=== PATIENT | male | born 1930 | race Caucasian/White ===

== ENCOUNTER 2016-10-13 08:07 | Outpatient (CLI) | payer MEDICARE, OTHER ==
[2016-10-13 09:12] LABS: #Basophils 0.1 thou/uL (0.0-0.2); #Eosinphils 0.7 thou/uL (0.0-0.7); #Lymphocytes 1.1 thou/uL (1.20-3.40); #Monocytes 0.6 thou/uL (0.11-0.59); #Neutrophils 6.5 thou/uL (1.40-6.50); %Basophils 1.2 % (0.0-1.0); %Lymphocytes 12.3 % (21.0-51.0); %Monocytes 6.7 % (0.0-10.0); %Neutrophils 71.8 % (42.0-75.0); Hemoglobin 9.5 g/dL (14.0-18.0); Mean Corpuscular HGB CONC 30.9 g/dL (32.0-36.0); Mean Corpuscular Hemoglobin 26.6 pg (27.0-31.0); Mean Platelet Volume 6.9 fL (7.4-10.4); Platelet Count 539 thou/uL (130-400); RBC Distribution Width 16.1 % (11.5-14.5); Red Blood Cell (RBC) Count 3.58 mill/uL (4.70-6.10); White Blood Cell (WBC) Count 9.1 thou/uL (4.8-10.8)
[2016-10-13 09:46] LABS: Albumin 3.7 g/dL (3.4-4.8); Anion Gap 19 mmol/L (10-20); BUN (Urea Nitrogen) 41 mg/dL (8.4-25.7); Calc. Creatinine Clearance 0 mL/min (70-130); Carbon Dioxide 22 mmol/L (23-31); Chloride 103 mmol/L (98-107); Estimated GFR-MDRD 27; Glucose 98 mg/dL (83-110); Phosphorus 4.2 mg/dL (2.3-4.7); Potassium 4.5 mmol/L (3.5-5.1); Sodium 139 mmol/L (136-145)
[2016-10-13 10:22] LABS: Follow-up Chemistry Comp? YES; Follow-up Hematology Comp? YES; Follow-up Result - Chemistry REPORT FAXED; Follow-up Result - Hematology REPORT FAXED
== END 2016-10-13 08:08 | disposition home or self-care (01) ==
LOC: NAV LAB 08:07
PROVIDERS: ATTEND Internal Medicine Nephrology
DX: E78.5 Hyperlipidemia, unspecified (principal); C18.9 Malignant neoplasm of colon, unspecified; C61 Malignant neoplasm of prostate; I12.9 Hypertensive chronic kidney disease with stage 1 through stage 4 chronic kidney disease, or unspecified chronic kidney disease; N18.4 Chronic kidney disease, stage 4 (severe); I25.10 Atherosclerotic heart disease of native coronary artery without angina pectoris; I73.9 Peripheral vascular disease, unspecified; J44.9 Chronic obstructive pulmonary disease, unspecified
CPT/HCPCS: 36415; 80069; 85025

== ENCOUNTER 2016-11-27 13:44 | Outpatient (CLI) | payer MEDICARE, OTHER ==
[2016-11-27 14:01] LABS: #Basophils 0.1 thou/uL (0.0-0.2); #Eosinphils 0.5 thou/uL (0.0-0.7); #Lymphocytes 1.8 thou/uL (1.20-3.40); #Monocytes 0.5 thou/uL (0.11-0.59); #Neutrophils 7.1 thou/uL (1.40-6.50); %Basophils 1.4 % (0.0-1.0); %Eosinophils 5.4 % (0.0-10.0); %Monocytes 4.8 % (0.0-10.0); %Neutrophils 70.3 % (42.0-75.0); Mean Corpuscular HGB CONC 30.6 g/dL (32.0-36.0); Mean Corpuscular Hemoglobin 27.2 pg (27.0-31.0); Mean Corpuscular Volume 88.9 fl (80.0-94.0); Mean Platelet Volume 6.5 fL (7.4-10.4); Platelet Count 620 thou/uL (130-400); RBC Distribution Width 18.3 % (11.5-14.5); Red Blood Cell (RBC) Count 4.05 mill/uL (4.70-6.10); White Blood Cell (WBC) Count 10.1 thou/uL (4.8-10.8)
[2016-11-27 14:04] LABS: Anion Gap 19 mmol/L (10-20); BUN (Urea Nitrogen) 47 mg/dL (8.4-25.7); Calc. Creatinine Clearance 0 mL/min (70-130); Calcium 9.2 mg/dL (7.8-10.44); Carbon Dioxide 23 mmol/L (23-31); Chloride 103 mmol/L (98-107); Estimated GFR-MDRD 26; Glucose 83 mg/dL (83-110); Potassium 4.6 mmol/L (3.5-5.1); Sodium 140 mmol/L (136-145)
== END 2016-11-27 13:45 | disposition home or self-care (01) ==
LOC: NAVSJIPCSP 13:44
PROVIDERS: ATTEND Internal Medicine
DX: I12.9 Hypertensive chronic kidney disease with stage 1 through stage 4 chronic kidney disease, or unspecified chronic kidney disease (principal); N18.9 Chronic kidney disease, unspecified; K92.1 Melena
CPT/HCPCS: 36415; 80048; 85025

== ENCOUNTER 2016-11-29 08:17 | Emergency (ER) | payer MEDICARE, OTHER ==
[2016-11-29] MEDS ORDERED: Lidocaine 1% w/Epinephrine 1:100K 20 ML VIAL ONE (08:42)
[2016-11-29] MEDS ORDERED: Bacitracin Zinc 1 Packet ONE (08:45)
[2016-11-29] MEDS ORDERED: Adacel (T-DAP) 0.5 ML VIAL ONE (09:00)
== END 2016-11-29 09:06 | disposition home or self-care (01) ==
LOC: NAV ERS 08:17
DX: S41.112A Laceration without foreign body of left upper arm, initial encounter (principal); I11.0 Hypertensive heart disease with heart failure; I50.9 Heart failure, unspecified; Z79.82 Long term (current) use of aspirin; Z95.0 Presence of cardiac pacemaker; Z79.899 Other long term (current) drug therapy; W26.8XXA Contact with other sharp object(s), not elsewhere classified, initial encounter
CPT/HCPCS: 12001; 90471; 90715; J2001

== ENCOUNTER 2016-12-21 10:55 | Emergency (ER) | payer MEDICARE, OTHER ==
--- NOTE | 2016-12-21 13:15 | RAD ---
LEFT TIBIA FIBULA: HISTORY: Injury to left lower extremity with pain to purdy region. FINDINGS: No evidence of fracture. No evidence of acute osseous abnormality. There is a tiny metallic fragment which overlies the proximal medial tibial condyle just below the t ibial plateau suggesting small foreign body. IMPRESSION: No evidence of acute osseous abnormality. Question tiny metallic foreign body. POS: GIULIANO
== END 2016-12-21 13:13 | disposition home or self-care (01) ==
LOC: NAV ERS 10:55
DX: S80.12XA Contusion of left lower leg, initial encounter (principal); I11.0 Hypertensive heart disease with heart failure; I50.9 Heart failure, unspecified; W22.8XXA Striking against or struck by other objects, initial encounter

== ENCOUNTER 2016-12-25 10:37 | Outpatient (CLI) | payer MEDICARE, OTHER ==
--- NOTE | 2016-12-25 12:59 | RAD ---
2 VIEWS OF CHEST: Date: 12/25/16 COMPARISON: 01/17/16. HISTORY: CHF exacerbation. FINDINGS: Two views of the chest show an enlarged but stable cardiomediastinal silhouette. The pacemaker is un changed in position. The increased interstitial lung markings are present. There is no evidence of c onsolidation, mass, or pleural effusion. IMPRESSION: No evidence of acute cardiopulmonary disease. POS: OFF
== END 2016-12-25 10:38 | disposition home or self-care (01) ==
LOC: NAV RAD 10:37
PROVIDERS: ATTEND Internal Medicine
DX: I50.32 Chronic diastolic (congestive) heart failure (principal); N18.4 Chronic kidney disease, stage 4 (severe)
CPT/HCPCS: 36415; 71020; 80048; 82728; 83880; 85025

== ENCOUNTER 2017-01-26 07:41 | Outpatient (CLI) | payer MEDICARE, BC ==
[2017-01-26 08:28] LABS: #Basophils 0.1 thou/uL (0.0-0.2); #Eosinphils 0.8 thou/uL (0.0-0.7); #Lymphocytes 1.4 thou/uL (1.20-3.40); #Monocytes 0.6 thou/uL (0.11-0.59); #Neutrophils 6.9 thou/uL (1.40-6.50); %Basophils 1.1 % (0.0-1.0); %Eosinophils 8.5 % (0.0-10.0); %Lymphocytes 13.8 % (21.0-51.0); %Monocytes 6.4 % (0.0-10.0); %Neutrophils 70.1 % (42.0-75.0); Mean Corpuscular Hemoglobin 27.1 pg (27.0-31.0); Mean Corpuscular Volume 87.5 fl (80.0-94.0); Mean Platelet Volume 7.2 fL (7.4-10.4); Platelet Count 543 thou/uL (130-400); Red Blood Cell (RBC) Count 3.69 mill/uL (4.70-6.10); White Blood Cell (WBC) Count 9.8 thou/uL (4.8-10.8)
[2017-01-26 08:48] LABS: Albumin 3.8 g/dL (3.4-4.8); Anion Gap 15 mmol/L (10-20); BUN (Urea Nitrogen) 49 mg/dL (8.4-25.7); Calc. Creatinine Clearance 0 mL/min (70-130); Calcium 9.3 mg/dL (7.8-10.44); Carbon Dioxide 26 mmol/L (23-31); Cardiac Risk 2.1 (Less than 4.5); Chloride 103 mmol/L (98-107); Cholesterol 100 mg/dl (< 200 Desired); Estimated GFR-MDRD 27; Glucose 83 mg/dL (83-110); HDL Cholesterol 48 mg/dL (>60 Neg Risk); LDL Cholesterol, Calculated 46 mg/dL; Phosphorus 4.5 mg/dL (2.3-4.7); Potassium 4.5 mmol/L (3.5-5.1); Sodium 139 mmol/L (136-145); Triglycerides 32 mg/dL (Less than 150)
== END 2017-01-26 07:42 | disposition home or self-care (01) ==
LOC: NAV LAB 07:41
PROVIDERS: ATTEND Internal Medicine Nephrology
DX: C61 Malignant neoplasm of prostate (principal); C18.9 Malignant neoplasm of colon, unspecified; I12.9 Hypertensive chronic kidney disease with stage 1 through stage 4 chronic kidney disease, or unspecified chronic kidney disease; N18.4 Chronic kidney disease, stage 4 (severe); E78.5 Hyperlipidemia, unspecified; J44.9 Chronic obstructive pulmonary disease, unspecified; I25.10 Atherosclerotic heart disease of native coronary artery without angina pectoris; I73.9 Peripheral vascular disease, unspecified
CPT/HCPCS: 36415; 80061; 80069; 84443; 85025

== ENCOUNTER 2017-03-17 00:27 | Emergency (ER) | payer MEDICARE, BC ==
[2017-03-17] MEDS ORDERED: Triple Antibiotic Oint 1 GM Packet ONE (00:47)
== END 2017-03-17 00:55 | disposition home or self-care (01) ==
LOC: NAV ERS 00:27
DX: S51.011A Laceration without foreign body of right elbow, initial encounter (principal); S61.511A Laceration without foreign body of right wrist, initial encounter; S61.512A Laceration without foreign body of left wrist, initial encounter; I11.0 Hypertensive heart disease with heart failure; I50.9 Heart failure, unspecified; Z79.82 Long term (current) use of aspirin; Z79.899 Other long term (current) drug therapy; W18.30XA Fall on same level, unspecified, initial encounter; Y92.009 Unspecified place in unspecified non-institutional (private) residence as the place of occurrence of the external cause
CPT/HCPCS: 99283

== ENCOUNTER 2020-10-08 09:50 | Outpatient (CLI) | payer MEDICARE, BC ==
[2020-10-09 13:56] LABS: SARS-CoV-2 PCR by NAA Not Detected (NotDetected)
== END 2020-10-08 09:51 | disposition home or self-care (01) ==
LOC: NAV LAB 09:50
PROVIDERS: ATTEND Ophthalmology Retina Specialist
DX: Z01.812 Encounter for preprocedural laboratory examination (principal); H40.52X0 Glaucoma secondary to other eye disorders, left eye, stage unspecified; F03.90 Unspecified dementia, unspecified severity, without behavioral disturbance, psychotic disturbance, mood disturbance, and anxiety; Z20.822 Contact with and (suspected) exposure to COVID-19
CPT/HCPCS: U0003; U0005